=== PATIENT | male | born 1955 | race Caucasian/White ===

== ENCOUNTER 2016-08-29 21:07 | Inpatient (IN) | payer MEDICAID ==
[~2016-08-29] VITALS: Ht 177.8 cm; Wt 136.2 kg
[~2016-08-29 21:07] MED LIST: ALB5IS NEB; ALBUAER3 IN; Apixaban Base PO; DOX100T PO; FLUT110A INH; FURO20TA3 PO; IPR002IS NEB; PRED-188 PO; PRED-559 PO; Pantoprazole Sodium Sesquihydr PO
[2016-08-29] MEDS ORDERED: IPRATROPIUM BROM 0.5 MG/2.5ML INH SOL NEB ONE (21:45)
[2016-08-29] MEDS ORDERED: methylPREDNISolone SOD SUCC 125 MG/2 ML VL IV ONE (21:45)
[2016-08-29] MEDS ORDERED: ALBUTEROL SULF 2.5 MG/0.5ML(0.5%) NEB SOLN NEB ONE (21:45)
[2016-08-29] MEDS ORDERED: FUROSEMIDE 40 MG/4 ML VIAL IV ONE (21:45)
[2016-08-29 22:05] LABS: Basophils # (auto) 0 uL; Eosinophils # (auto) 0 uL; Eosinophils % (auto) 0.3 % (0.0-7.0); Hematocrit 45.8 % (41.0-53.0); Hemoglobin 14.3 g/dL (13.5-17.5); Lymphocytes # (auto) 0.6 uL; Lymphocytes % (auto) 5.6 % (10.0-50.0); Mean Corpuscular Hemoglobin 28.6 pg (28.0-32.0); Mean Corpuscular Hgb Conc. 31.2 g/dL (32.0-36.0); Mean Corpuscular Volume 91.7 fL (80.0-100.0); Mean Platelet Volume 8.1 fL (7.4-10.4); Monocytes # (auto) 0.8 uL; Monocytes % (auto) 7.3 % (0.0-12.0); Neutrophils # (auto) 9.8 uL; Neutrophils % (auto) 86.8 % (37.0-80.0); Platelet Count (auto) 379 10^3/uL (140-450); Red Cell Distribution Width 16.7 % (11.6-16.0); White Blood Cell 11.3 10^3/uL (4.4-10.8)
[2016-08-29 22:23] LABS: Albumin 3.1 g/dL (3.4-5.0); BUN/Creatinine Ratio 20.8; Calcium 8.3 mg/dL (8.5-10.1); Potassium 4.6 mmol/L (3.5-5.1)
[2016-08-29 22:31] LABS: B-Type Natriuretic Peptide 85.93 pg/mL (0-100)
[2016-08-29 22:36] LABS: Bilirubin, Total 0.2 mg/dL (0.2-1.0); Total Protein 7.5 g/dL (6.4-8.2)
[2016-08-29 22:42] LABS: INR 1.04 (0.9-1.15); Partial Thromboplastin Time 27.7 sec (22.64-33.71); Prothrombin Time 10.7 sec (9.37-12.3)
[2016-08-30] VITALS (8 sets, daily range): BP systolic 137–161; BP diastolic 72–102
[2016-08-30] MEDS ORDERED: ALBUTEROL SULF 2.5 MG/0.5ML(0.5%) NEB SOLN ONE (00:40)
[2016-08-30] MEDS ORDERED: ALBUTEROL SULF 2.5 MG/0.5ML(0.5%) NEB SOLN NEB ONE (00:45)
[2016-08-30] MEDS ORDERED: MORPHINE SULF INJ 2 MG/ML SYRINGE 1ML IV ONE (03:30)
[2016-08-30] MEDS ORDERED: ONDANSETRON HCL 4 MG/2 ML VIAL IV ONE (03:30)
[2016-08-30] MEDS ORDERED: TEMAZEPAM 15 MG CAP PO PRN (04:00)
[2016-08-30] MEDS ORDERED: NITROGLYCERIN 0.4 MG SL TAB SL PRN (04:00)
[2016-08-30] MEDS ORDERED: ONDANSETRON HCL 4 MG/2 ML VIAL IV PRN (04:00)
[2016-08-30] MEDS ORDERED: ACETAMINOPHEN 325 MG TAB PO PRN (04:00)
[2016-08-30] MEDS ORDERED: MORPHINE SULF INJ 2 MG/ML SYRINGE 1ML IV PRN (04:00)
[2016-08-30] MEDS ORDERED: HYDROcodone-ACET 5/325MG TAB PO PRN (04:00)
[2016-08-30] MEDS ORDERED: ALBUTEROL SULF 2.5 MG/0.5ML(0.5%) NEB SOLN NEB PRN (04:00)
[2016-08-30] MEDS: ENOXAPARIN SOD 100 MG/1 ML SYRINGE SC SCH ×2 (04:13→19:09)
[2016-08-30] MEDS: FUROSEMIDE 20 MG TAB PO SCH ×2 (05:53→19:09)
[2016-08-30] MEDS: cefTRIAXone 1GM/50ML D5W 50 ML IV SCH (12:01)
[2016-08-30] MEDS: predniSONE 5 MG TAB PO SCH (12:01)
[2016-08-30] MEDS: PANTOPRAZOLE 40 MG TAB PO SCH (12:02)
[2016-08-30] MEDS: FAMOTIDINE 20 MG TAB PO SCH ×2 (12:02→21:40)
[2016-08-31] VITALS (31 sets, daily range): BP systolic 81–153; BP diastolic 40–91
[2016-08-31] MEDS: ENOXAPARIN SOD 100 MG/1 ML SYRINGE SC SCH ×2 (05:03→16:22)
[2016-08-31] MEDS: FUROSEMIDE 20 MG TAB PO SCH (06:21)
[2016-08-31 06:25] LABS: Basophils # (auto) 0 uL; Basophils % (auto) 0.1 % (0.0-2.0); DEFINITIVE VIEW TRANSMISSION; Eosinophils # (auto) 0 uL; Hematocrit 45.9 % (41.0-53.0); Hemoglobin 14.1 g/dL (13.5-17.5); Lymphocytes # (auto) 0.8 uL; Lymphocytes % (auto) 5.3 % (10.0-50.0); Mean Corpuscular Hemoglobin 28.4 pg (28.0-32.0); Mean Corpuscular Hgb Conc. 30.8 g/dL (32.0-36.0); Mean Corpuscular Volume 92.3 fL (80.0-100.0); Mean Platelet Volume 8.1 fL (7.4-10.4); Monocytes # (auto) 1.1 uL; Monocytes % (auto) 7.6 % (0.0-12.0); Neutrophils # (auto) 12.7 uL; Platelet Count (auto) 379 10^3/uL (140-450); Red Cell Distribution Width 15.9 % (11.6-16.0); White Blood Cell 14.6 10^3/uL (4.4-10.8)
[2016-08-31] MEDS: cefTRIAXone 1GM/50ML D5W 50 ML IV SCH (09:46)
[2016-08-31] MEDS: PANTOPRAZOLE 40 MG TAB PO SCH (09:46)
[2016-08-31] MEDS: FAMOTIDINE 20 MG TAB PO SCH (09:46)
[2016-08-31] MEDS: predniSONE 5 MG TAB PO SCH (09:46)
[2016-08-31 09:55] LABS: BUN/Creatinine Ratio 23.8
[2016-08-31 09:56] LABS: Albumin 2.9 g/dL (3.4-5.0); Bilirubin, Total 0.2 mg/dL (0.2-1.0); Calcium 8.4 mg/dL (8.5-10.1); Total Protein 7.6 g/dL (6.4-8.2)
[2016-08-31 10:28] LABS: Urine Bilirubin Negative (Negative); Urine Color Yellow (Yellow); Urine Glucose Normal (Normal); Urine Ketone Negative (Negative); Urine Nitrite Negative (Negative); Urine RBC 57 /hpf (0 - 3); Urine Squamous Epithelial Cell FEW /hpf (<5); Urine Urobilinogen Normal (Negative)
[2016-08-31 10:30] LABS: Urine Blood 2+ /uL (Negative)
[2016-08-31] MEDS ORDERED: ROCURONIUM 10MG/ML 10ML VIAL IV ONE (16:36)
[2016-08-31] MEDS ORDERED: ETOMIDATE (2MG/ML) 20ML VIAL IV ONE (16:36)
[2016-08-31] MEDS ORDERED: PROPOFOL 100 ML IV ONE (16:37)
[2016-08-31] MEDS ORDERED: SUCCINYLCHOLINE CHLORIDE 20 MG/ML 10ML VIAL IV ONE (16:37)
[2016-08-31] MEDS ORDERED: MORPHINE SULF INJ 2 MG/ML SYRINGE 1ML IV PRN (16:45)
[2016-08-31] MEDS ORDERED: LORazepam 2MG/ML-1ML VIAL IV PRN (16:45)
[2016-08-31] MEDS ORDERED: NOREPINEPHRINE BITARTRATE 250 ML IV ONE (17:17)
[2016-08-31] MEDS: MIDAZOLAM DRIP 100 mg/100mL NS 100 ML IV SCH ×2 (17:30→23:00)
[2016-08-31] MEDS ORDERED: PROPOFOL 100 ML IV SCH (17:44)
[2016-08-31] MEDS ORDERED: MIDAZOLAM HCL 1MG/1ML-2 ML VIAL IV ONE (17:45)
[2016-08-31] MEDS: IPRATROPIUM BROM 0.5 MG/2.5ML INH SOL NEB SCH ×2 (18:54→22:28)
[2016-08-31] MEDS: ALBUTEROL SULF 2.5 MG/0.5ML(0.5%) NEB SOLN NEB SCH ×2 (18:54→22:29)
[2016-08-31] MEDS: PROPOFOL 100 ML IV SCH (19:30)
[2016-08-31] MEDS: methylPREDNISolone SOD SUCC 40 MG/ML VL IV SCH (19:34)
[2016-08-31] MEDS: FAMOTIDINE (10MG/ML) 2ML VL IV SCH (22:29)
[2016-08-31] MEDS: NOREPINEPHRINE BITARTRATE 250 ML IV SCH (22:30)
[2016-09-01] VITALS (103 sets, daily range): BP systolic 83–138; BP diastolic 43–87
[2016-09-01] MEDS: methylPREDNISolone SOD SUCC 40 MG/ML VL IV SCH ×4 (00:28→17:25)
[2016-09-01] MEDS: IPRATROPIUM BROM 0.5 MG/2.5ML INH SOL NEB SCH ×6 (02:00→22:32)
[2016-09-01] MEDS: ALBUTEROL SULF 2.5 MG/0.5ML(0.5%) NEB SOLN NEB SCH ×6 (02:00→22:32)
[2016-09-01] MEDS: ENOXAPARIN SOD 100 MG/1 ML SYRINGE SC SCH ×2 (03:53→16:12)
[2016-09-01] MEDS: NOREPINEPHRINE BITARTRATE 250 ML IV SCH (07:00)
[2016-09-01] MEDS: cefTRIAXone 1GM/50ML D5W 50 ML IV SCH (09:33)
[2016-09-01] MEDS: FAMOTIDINE (10MG/ML) 2ML VL IV SCH ×2 (09:56→22:00)
[2016-09-01] MEDS: PANTOPRAZOLE SODIUM 40 MG/10 ML VIAL IV SCH (09:57)
[2016-09-01] MEDS: fentaNYL Drip 2500mCg/250mlNS 250 ML IV SCH (10:26)
[2016-09-01] MEDS: MIDAZOLAM DRIP 100 mg/100mL NS 100 ML IV SCH ×2 (15:11→21:54)
[2016-09-01] MEDS ORDERED: Nutren Pulmonary 1 Liter GT SCH (15:15)
[2016-09-01 17:01] LABS: Basophils # (auto) 0 uL; Basophils % (auto) 0.3 % (0.0-2.0); Eosinophils # (auto) 0 uL; Hematocrit 40.4 % (41.0-53.0); Hemoglobin 12.6 g/dL (13.5-17.5); Lymphocytes # (auto) 0.5 uL; Lymphocytes % (auto) 5.3 % (10.0-50.0); Mean Corpuscular Hemoglobin 28.3 pg (28.0-32.0); Mean Corpuscular Hgb Conc. 31.3 g/dL (32.0-36.0); Mean Corpuscular Volume 90.3 fL (80.0-100.0); Mean Platelet Volume 8.1 fL (7.4-10.4); Monocytes # (auto) 0.3 uL; Monocytes % (auto) 2.7 % (0.0-12.0); Neutrophils # (auto) 9.3 uL; Neutrophils % (auto) 91.7 % (37.0-80.0); Platelet Count (auto) 374 10^3/uL (140-450); Red Cell Distribution Width 15.7 % (11.6-16.0); White Blood Cell 10.2 10^3/uL (4.4-10.8)
[2016-09-01 17:17] LABS: Albumin 2.6 g/dL (3.4-5.0); Bilirubin, Total 0.2 mg/dL (0.2-1.0); Calcium 8.5 mg/dL (8.5-10.1); Potassium 4.4 mmol/L (3.5-5.1); Total Protein 6.6 g/dL (6.4-8.2)
[2016-09-01] MEDS: FREE WATER GT SCH ×2 (17:37→22:00)
[2016-09-01] MEDS: PROPOFOL 100 ML IV SCH (18:15)
[2016-09-01] MEDS: BUDESONIDE (INHALATION) 0.5 MG/2 ML NEB NEB SCH (18:33)
[2016-09-02] VITALS (59 sets, daily range): BP systolic 85–122; BP diastolic 43–73
[2016-09-02] MEDS: FREE WATER GT SCH ×4 (02:00→18:00)
[2016-09-02] MEDS: IPRATROPIUM BROM 0.5 MG/2.5ML INH SOL NEB SCH ×6 (02:45→22:23)
[2016-09-02] MEDS: ALBUTEROL SULF 2.5 MG/0.5ML(0.5%) NEB SOLN NEB SCH ×6 (02:46→22:23)
[2016-09-02] MEDS: ENOXAPARIN SOD 100 MG/1 ML SYRINGE SC SCH ×2 (04:00→16:06)
[2016-09-02] MEDS: BUDESONIDE (INHALATION) 0.5 MG/2 ML NEB NEB SCH ×2 (07:00→22:23)
[2016-09-02] MEDS: methylPREDNISolone SOD SUCC 40 MG/ML VL IV SCH ×4 (07:30→18:03)
[2016-09-02] MEDS: cefTRIAXone 1GM/50ML D5W 50 ML IV SCH (08:36)
[2016-09-02] MEDS: FAMOTIDINE (10MG/ML) 2ML VL IV SCH ×2 (09:36→22:00)
[2016-09-02] MEDS: PANTOPRAZOLE SODIUM 40 MG/10 ML VIAL IV SCH (09:36)
[2016-09-02] MEDS: MIDAZOLAM DRIP 100 mg/100mL NS 100 ML IV SCH (11:32)
[2016-09-02] MEDS: SODIUM CHLORIDE 0.9% 1,000 ML IV SCH (14:44)
[2016-09-02 15:19] LABS: BUN/Creatinine Ratio 25.6; Calcium 8.3 mg/dL (8.5-10.1); Potassium 4.4 mmol/L (3.5-5.1)
[2016-09-02] MEDS: fentaNYL Drip 2500mCg/250mlNS 250 ML IV SCH (16:28)
[2016-09-02] MEDS: PROPOFOL 100 ML IV SCH (18:03)
[2016-09-02] MEDS: NOREPINEPHRINE BITARTRATE 250 ML IV SCH (22:03)
[2016-09-03] VITALS (30 sets, daily range): BP systolic 83–121; BP diastolic 43–82
[2016-09-03] MEDS: ALBUTEROL SULF 2.5 MG/0.5ML(0.5%) NEB SOLN NEB SCH ×6 (02:42→22:31)
[2016-09-03] MEDS: IPRATROPIUM BROM 0.5 MG/2.5ML INH SOL NEB SCH ×6 (02:42→22:30)
[2016-09-03] MEDS: ENOXAPARIN SOD 100 MG/1 ML SYRINGE SC SCH ×2 (04:00→17:20)
[2016-09-03] MEDS: methylPREDNISolone SOD SUCC 40 MG/ML VL IV SCH ×4 (06:00→18:00)
[2016-09-03] MEDS: FREE WATER GT SCH ×3 (06:00→12:00)
[2016-09-03] MEDS: cefTRIAXone 1GM/50ML D5W 50 ML IV SCH (09:23)
[2016-09-03] MEDS: PANTOPRAZOLE SODIUM 40 MG/10 ML VIAL IV SCH (09:23)
[2016-09-03] MEDS: FAMOTIDINE (10MG/ML) 2ML VL IV SCH (09:23)
[2016-09-03] MEDS: BUDESONIDE (INHALATION) 0.5 MG/2 ML NEB NEB SCH ×2 (09:49→18:07)
[2016-09-03] MEDS: fentaNYL Drip 2500mCg/250mlNS 250 ML IV SCH (10:02)
[2016-09-03] MEDS: SODIUM CHLORIDE 0.9% 1,000 ML IV SCH (11:33)
[2016-09-03] MEDS: PROPOFOL 100 ML IV SCH (22:03)
[2016-09-03] MEDS: NOREPINEPHRINE BITARTRATE 250 ML IV SCH (22:03)
[2016-09-04] VITALS (76 sets, daily range): BP systolic 91–162; BP diastolic 49–106
[2016-09-04] MEDS: MIDAZOLAM DRIP 100 mg/100mL NS 100 ML IV SCH ×3 (00:07→20:34)
[2016-09-04] MEDS: IPRATROPIUM BROM 0.5 MG/2.5ML INH SOL NEB SCH ×6 (02:43→22:30)
[2016-09-04] MEDS: ALBUTEROL SULF 2.5 MG/0.5ML(0.5%) NEB SOLN NEB SCH ×6 (02:43→22:30)
[2016-09-04 04:24] LABS: Basophils # (auto) 0.3 uL; Basophils % (auto) 2.5 % (0.0-2.0); Eosinophils # (auto) 0 uL; Eosinophils % (auto) 0.1 % (0.0-7.0); Hematocrit 38.6 % (41.0-53.0); Hemoglobin 11.9 g/dL (13.5-17.5); Lymphocytes # (auto) 0.3 uL; Lymphocytes % (auto) 2.9 % (10.0-50.0); Mean Corpuscular Hemoglobin 28.2 pg (28.0-32.0); Mean Corpuscular Hgb Conc. 30.9 g/dL (32.0-36.0); Mean Corpuscular Volume 91.2 fL (80.0-100.0); Mean Platelet Volume 8.6 fL (7.4-10.4); Monocytes # (auto) 0.8 uL; Monocytes % (auto) 7.7 % (0.0-12.0); Neutrophils # (auto) 9.4 uL; Neutrophils % (auto) 86.8 % (37.0-80.0); Platelet Count (auto) 313 10^3/uL (140-450); Red Cell Distribution Width 16.1 % (11.6-16.0); White Blood Cell 10.8 10^3/uL (4.4-10.8)
[2016-09-04 04:36] LABS: BUN/Creatinine Ratio 27.3; Calcium 7.8 mg/dL (8.5-10.1); Potassium 4.3 mmol/L (3.5-5.1)
[2016-09-04] MEDS: methylPREDNISolone SOD SUCC 40 MG/ML VL IV SCH ×2 (06:00)
[2016-09-04] MEDS: BUDESONIDE (INHALATION) 0.5 MG/2 ML NEB NEB SCH ×2 (06:30→18:08)
[2016-09-04] MEDS: FAMOTIDINE (10MG/ML) 2ML VL IV SCH (09:38)
[2016-09-04] MEDS: cefTRIAXone 1GM/50ML D5W 50 ML IV SCH (09:38)
[2016-09-04] MEDS: PANTOPRAZOLE SODIUM 40 MG/10 ML VIAL IV SCH (09:38)
[2016-09-04] MEDS: fentaNYL Drip 2500mCg/250mlNS 250 ML IV SCH (10:02)
[2016-09-04] MEDS: FREE WATER GT SCH ×3 (14:00→22:00)
[2016-09-04] MEDS ORDERED: LIDOCAINE 1% HCL (LOCAL ANESTH.) INJ 20ML MDV ID ONE (14:15)
[2016-09-04] MEDS: SOD CHL 0.45% 1,000 ML IV SCH (15:15)
[2016-09-04] MEDS ORDERED: TPN PER PHARMACY 0 ML IV SCH (17:00)
[2016-09-04] MEDS: PROPOFOL 100 ML IV SCH (18:15)
[2016-09-04] MEDS: MULTIPLE VITAMIN IV SCH (20:00)
[2016-09-04] MEDS: INSULIN R IV SCH (20:00)
[2016-09-04] MEDS: TRACE MINERALS IV SCH (20:00)
[2016-09-04] MEDS: [UNRECOGNIZED DRUG - OTHER] IV SCH (20:00)
[2016-09-04] MEDS: SODIUM CHLOR 0.9% PF (SALINE LOCK) 10ML VIAL IV SCH (22:00)
[2016-09-04] MEDS: NOREPINEPHRINE BITARTRATE 250 ML IV SCH (22:03)
[2016-09-05] VITALS (93 sets, daily range): BP systolic 89–144; BP diastolic 48–95
[2016-09-05] MEDS ORDERED: DEXTROSE (50%) 50ML SYRG IV SCH
[2016-09-05] MEDS: InsuLIN REG 1unit/0.01ml Soln (100units/ml) SC SCH ×4 (00:22→17:58)
[2016-09-05] MEDS: ACCU-CHEK COMFORT CURVE STRIP VI SCH ×4 (00:22→17:56)
[2016-09-05] MEDS: FREE WATER GT SCH ×5 (02:00→17:56)
[2016-09-05] MEDS: ALBUTEROL SULF 2.5 MG/0.5ML(0.5%) NEB SOLN NEB SCH ×6 (02:25→21:56)
[2016-09-05] MEDS: IPRATROPIUM BROM 0.5 MG/2.5ML INH SOL NEB SCH ×6 (02:25→21:56)
[2016-09-05] MEDS: SOD CHL 0.45% 1,000 ML IV SCH ×3 (04:35→22:19)
[2016-09-05] MEDS ORDERED: ENOXAPARIN SOD 100 MG/1 ML SYRINGE SC SCH (05:00)
[2016-09-05 06:35] LABS: Basophils # (auto) 0 uL; DEFINITIVE VIEW TRANSMISSION; Eosinophils # (auto) 0 uL; Eosinophils % (auto) 0.1 % (0.0-7.0); Hematocrit 36.4 % (41.0-53.0); Hemoglobin 9.9 g/dL (13.5-17.5); Lymphocytes # (auto) 0.2 uL; Mean Corpuscular Hemoglobin 28.4 pg (28.0-32.0); Mean Corpuscular Volume 105.1 fL (80.0-100.0); Mean Platelet Volume 8.9 fL (7.4-10.4); Monocytes # (auto) 0.2 uL; Monocytes % (auto) 1.9 % (0.0-12.0); Neutrophils # (auto) 11.1 uL; Platelet Count (auto) 255 10^3/uL (140-450); Red Cell Distribution Width 18.4 % (11.6-16.0); SUSPECT VIEW TRANSMISSION; White Blood Cell 11.5 10^3/uL (4.4-10.8)
[2016-09-05] MEDS: methylPREDNISolone SOD SUCC 40 MG/ML VL IV SCH ×5 (08:00→21:44)
[2016-09-05 08:55] LABS: Anisocytosis Slight; Platelet Estimate Adequate
[2016-09-05 09:04] LABS: Albumin 2.4 g/dL (3.4-5.0); BUN/Creatinine Ratio 31.3; Bilirubin, Total 0.2 mg/dL (0.2-1.0); Calcium 7.7 mg/dL (8.5-10.1); Phosphorus 4.3 mg/dL (2.6-4.90); Potassium 4.6 mmol/L (3.5-5.1); Total Protein 6.1 g/dL (6.4-8.2); Uric Acid 4.5 mg/dL (3.5-7.2)
[2016-09-05] MEDS: SODIUM CHLOR 0.9% PF (SALINE LOCK) 10ML VIAL IV SCH ×2 (09:50→21:33)
[2016-09-05] MEDS: PANTOPRAZOLE SODIUM 40 MG/10 ML VIAL IV SCH (09:50)
[2016-09-05] MEDS: cefTRIAXone 1GM/50ML D5W 50 ML IV SCH (09:50)
[2016-09-05] MEDS: fentaNYL Drip 2500mCg/250mlNS 250 ML IV SCH (09:52)
[2016-09-05] MEDS: BUDESONIDE (INHALATION) 0.5 MG/2 ML NEB NEB SCH ×2 (10:00→18:14)
[2016-09-05] MEDS: MULTIPLE VITAMIN IV SCH (15:00)
[2016-09-05] MEDS: INSULIN R IV SCH (15:00)
[2016-09-05] MEDS: [UNRECOGNIZED DRUG - OTHER] IV SCH (15:00)
[2016-09-05] MEDS: TRACE MINERALS IV SCH (15:00)
[2016-09-05] MEDS: DOXYCYCLINE HYC 100MG/250ML 250 ML IV SCH (16:08)
[2016-09-05] MEDS: PROPOFOL 100 ML IV SCH (17:58)
[2016-09-05] MEDS ORDERED: CLINIMIX PER PHARMACY IV NR ×5 (20:00)
[2016-09-05] MEDS: MIDAZOLAM DRIP 100 mg/100mL NS 100 ML IV SCH (22:57)
[2016-09-06] VITALS (103 sets, daily range): BP systolic 85–122; BP diastolic 43–102
[2016-09-06] MEDS: ACCU-CHEK COMFORT CURVE STRIP VI SCH ×4 (00:10→18:26)
[2016-09-06] MEDS: IPRATROPIUM BROM 0.5 MG/2.5ML INH SOL NEB SCH ×5 (02:45→18:51)
[2016-09-06] MEDS: ALBUTEROL SULF 2.5 MG/0.5ML(0.5%) NEB SOLN NEB SCH ×5 (02:45→18:51)
[2016-09-06] MEDS: DOXYCYCLINE HYC 100MG/250ML 250 ML IV SCH ×2 (03:16→15:41)
[2016-09-06 04:10] LABS: Basophils # (auto) 0 uL; Eosinophils # (auto) 0 uL; Eosinophils % (auto) 0.1 % (0.0-7.0); Hematocrit 38.4 % (41.0-53.0); Hemoglobin 11.8 g/dL (13.5-17.5); Lymphocytes # (auto) 0.3 uL; Lymphocytes % (auto) 2.2 % (10.0-50.0); Mean Corpuscular Hemoglobin 28.3 pg (28.0-32.0); Mean Corpuscular Hgb Conc. 30.8 g/dL (32.0-36.0); Mean Corpuscular Volume 91.7 fL (80.0-100.0); Mean Platelet Volume 8.5 fL (7.4-10.4); Monocytes # (auto) 0.3 uL; Monocytes % (auto) 1.9 % (0.0-12.0); Neutrophils # (auto) 14.1 uL; Neutrophils % (auto) 95.8 % (37.0-80.0); Platelet Count (auto) 322 10^3/uL (140-450); Red Cell Distribution Width 16.8 % (11.6-16.0); White Blood Cell 14.7 10^3/uL (4.4-10.8)
[2016-09-06 04:16] LABS: Albumin 2.2 g/dL (3.4-5.0); BUN/Creatinine Ratio 37.2; Bilirubin, Total 0.2 mg/dL (0.2-1.0); Calcium 7.8 mg/dL (8.5-10.1); Magnesium 2.7 mg/dL (1.6-2.6); Phosphorus 4.6 mg/dL (2.6-4.90); Potassium 4.7 mmol/L (3.5-5.1); Total Protein 5.4 g/dL (6.4-8.2)
[2016-09-06] MEDS: MIDAZOLAM DRIP 100 mg/100mL NS 100 ML IV SCH (05:18)
[2016-09-06] MEDS: InsuLIN REG 1unit/0.01ml Soln (100units/ml) SC SCH ×4 (06:00→18:00)
[2016-09-06] MEDS: FREE WATER GT SCH ×4 (06:00→18:26)
[2016-09-06] MEDS: BUDESONIDE (INHALATION) 0.5 MG/2 ML NEB NEB SCH (06:17)
[2016-09-06] MEDS: methylPREDNISolone SOD SUCC 40 MG/ML VL IV SCH ×3 (06:58→21:55)
[2016-09-06] MEDS: fentaNYL Drip 2500mCg/250mlNS 250 ML IV SCH (09:13)
[2016-09-06] MEDS: PANTOPRAZOLE SODIUM 40 MG/10 ML VIAL IV SCH (09:48)
[2016-09-06] MEDS: ENOXAPARIN SOD 100 MG/1 ML SYRINGE SC SCH ×2 (09:48→21:56)
[2016-09-06] MEDS: SODIUM CHLOR 0.9% PF (SALINE LOCK) 10ML VIAL IV SCH ×2 (09:48→21:56)
[2016-09-06] MEDS: PROPOFOL 100 ML IV SCH (18:15)
[2016-09-06] MEDS: SOD CHL 0.45% 1,000 ML IV SCH ×2 (18:19→19:35)
[2016-09-06] MEDS: MULTIPLE VITAMIN IV SCH (18:26)
[2016-09-06] MEDS: INSULIN R IV SCH (18:26)
[2016-09-06] MEDS: TRACE MINERALS IV SCH (18:26)
[2016-09-06] MEDS: [UNRECOGNIZED DRUG - OTHER] IV SCH (18:26)
[2016-09-06] MEDS ORDERED: TPN PER PHARMACY 0 ML IV SCH (20:00)
[2016-09-06] MEDS ORDERED: CLINIMIX PER PHARMACY IV NR ×5 (20:00)
[2016-09-07] VITALS (104 sets, daily range): BP systolic 91–127; BP diastolic 49–79
[2016-09-07] MEDS: IPRATROPIUM BROM 0.5 MG/2.5ML INH SOL NEB SCH ×7 (00:18→23:03)
[2016-09-07] MEDS: BUDESONIDE (INHALATION) 0.5 MG/2 ML NEB NEB SCH ×3 (00:18→23:03)
[2016-09-07] MEDS: ALBUTEROL SULF 2.5 MG/0.5ML(0.5%) NEB SOLN NEB SCH ×7 (00:18→23:03)
[2016-09-07] MEDS: DOXYCYCLINE HYC 100MG/250ML 250 ML IV SCH ×2 (02:47→15:49)
[2016-09-07 04:15] LABS: Albumin 2.1 g/dL (3.4-5.0); BUN/Creatinine Ratio 42.1; Bilirubin, Total 0.2 mg/dL (0.2-1.0); Calcium 7.8 mg/dL (8.5-10.1); Magnesium 2.5 mg/dL (1.6-2.6); Phosphorus 3.5 mg/dL (2.6-4.90); Potassium 4.5 mmol/L (3.5-5.1); Total Protein 5.3 g/dL (6.4-8.2)
[2016-09-07] MEDS: SOD CHL 0.45% 1,000 ML IV SCH (04:19)
[2016-09-07] MEDS: FREE WATER GT SCH ×4 (06:00→17:39)
[2016-09-07] MEDS: InsuLIN REG 1unit/0.01ml Soln (100units/ml) SC SCH ×4 (06:00→17:40)
[2016-09-07] MEDS: ACCU-CHEK COMFORT CURVE STRIP VI SCH ×4 (06:08→17:39)
[2016-09-07] MEDS: methylPREDNISolone SOD SUCC 40 MG/ML VL IV SCH ×3 (06:11→22:02)
[2016-09-07] MEDS: fentaNYL Drip 2500mCg/250mlNS 250 ML IV SCH ×2 (06:43→22:00)
[2016-09-07] MEDS: MIDAZOLAM DRIP 100 mg/100mL NS 100 ML IV SCH (06:43)
[2016-09-07] MEDS: PANTOPRAZOLE SODIUM 40 MG/10 ML VIAL IV SCH (10:31)
[2016-09-07] MEDS: ENOXAPARIN SOD 120 MG/0.8 ML SYRINGE SC SCH ×2 (10:32→22:02)
[2016-09-07] MEDS: SODIUM CHLOR 0.9% PF (SALINE LOCK) 10ML VIAL IV SCH ×2 (10:32→22:03)
[2016-09-07] MEDS: MULTIPLE VITAMIN IV SCH (17:30)
[2016-09-07] MEDS: TRACE MINERALS IV SCH (17:30)
[2016-09-07] MEDS: INSULIN R IV SCH (17:30)
[2016-09-07] MEDS: [UNRECOGNIZED DRUG - OTHER] IV SCH (17:30)
[2016-09-07] MEDS: LEVOFLOXACIN 750MG 150 ML IV SCH (17:39)
[2016-09-07] MEDS: PROPOFOL 100 ML IV SCH (18:15)
[2016-09-07] MEDS: LINEZOLID 600MG/300ML 300 ML IV SCH (19:59)
[2016-09-07] MEDS ORDERED: CLINIMIX PER PHARMACY IV NR ×6 (20:00)
[2016-09-07] MEDS: MEROPENEM 1GM IVPB 100 ML IV SCH (22:02)
[2016-09-08] VITALS (108 sets, daily range): BP systolic 81–133; BP diastolic 42–79
[2016-09-08] MEDS: ACCU-CHEK COMFORT CURVE STRIP VI SCH ×5 (00:17→23:53)
[2016-09-08] MEDS: SOD CHL 0.45% 1,000 ML IV SCH ×3 (00:19→20:08)
[2016-09-08] MEDS: InsuLIN REG 1unit/0.01ml Soln (100units/ml) SC SCH ×5 (01:03→23:53)
[2016-09-08] MEDS: MIDAZOLAM DRIP 100 mg/100mL NS 100 ML IV SCH (02:11)
[2016-09-08] MEDS: IPRATROPIUM BROM 0.5 MG/2.5ML INH SOL NEB SCH ×6 (02:41→22:03)
[2016-09-08] MEDS: ALBUTEROL SULF 2.5 MG/0.5ML(0.5%) NEB SOLN NEB SCH ×6 (02:41→22:03)
[2016-09-08] MEDS: DOXYCYCLINE HYC 100MG/250ML 250 ML IV SCH (03:00)
[2016-09-08 04:12] LABS: Hematocrit 39.6 % (41.0-53.0); Hemoglobin 12.4 g/dL (13.5-17.5); Mean Corpuscular Hemoglobin 28.2 pg (28.0-32.0); Mean Corpuscular Hgb Conc. 31.2 g/dL (32.0-36.0); Mean Corpuscular Volume 90.3 fL (80.0-100.0); Mean Platelet Volume 9.4 fL (7.4-10.4); Platelet Count (auto) 287 10^3/uL (140-450); Red Cell Distribution Width 16.5 % (11.6-16.0); SUSPECT VIEW TRANSMISSION; White Blood Cell 17.1 10^3/uL (4.4-10.8)
[2016-09-08 04:17] LABS: Promyelocytes % 0; Reactive Lymphocytes 0
[2016-09-08 04:40] LABS: Calcium 7.8 mg/dL (8.5-10.1); Potassium 4.3 mmol/L (3.5-5.1)
[2016-09-08 05:00] LABS: Albumin 1.9 g/dL (3.4-5.0); BUN/Creatinine Ratio 45.4; Bilirubin, Total 0.3 mg/dL (0.2-1.0); Magnesium 2.2 mg/dL (1.6-2.6)
[2016-09-08 05:37] LABS: Metamyelocytes % 1; Myelocytes % 1
[2016-09-08 05:38] LABS: Hypersegmented Neutrophils Present; Platelet Estimate Adequate; RBC Morphology Normal
[2016-09-08] MEDS: FREE WATER GT SCH ×5 (06:16→23:53)
[2016-09-08] MEDS: MEROPENEM 1GM IVPB 100 ML IV SCH ×3 (06:17→21:46)
[2016-09-08] MEDS: methylPREDNISolone SOD SUCC 40 MG/ML VL IV SCH ×3 (06:18→21:45)
[2016-09-08] MEDS: BUDESONIDE (INHALATION) 0.5 MG/2 ML NEB NEB SCH ×2 (06:35→21:51)
[2016-09-08] MEDS: LINEZOLID 600MG/300ML 300 ML IV SCH ×2 (08:40→19:44)
[2016-09-08] MEDS: ENOXAPARIN SOD 120 MG/0.8 ML SYRINGE SC SCH ×2 (10:30→21:45)
[2016-09-08] MEDS: SODIUM CHLOR 0.9% PF (SALINE LOCK) 10ML VIAL IV SCH ×2 (10:30→21:46)
[2016-09-08] MEDS: PANTOPRAZOLE SODIUM 40 MG/10 ML VIAL IV SCH (10:30)
[2016-09-08] MEDS: fentaNYL Drip 2500mCg/250mlNS 250 ML IV SCH (13:13)
[2016-09-08 16:52] LABS: Urine Bilirubin Negative (Negative); Urine Blood 3+ /uL (Negative); Urine Color PINK (Yellow); Urine Glucose Normal (Normal); Urine Ketone TRACE (Negative); Urine Mucus FEW (None Seen); Urine Nitrite Negative (Negative); Urine RBC 1961 /hpf (0 - 3); Urine Urobilinogen Normal (Negative)
[2016-09-08] MEDS ORDERED: TPN PER PHARMACY IV NR ×10 (20:00)
[2016-09-08] MEDS: MULTIPLE VITAMIN IV SCH (20:09)
[2016-09-08] MEDS: [UNRECOGNIZED DRUG - OTHER] IV SCH (20:09)
[2016-09-08] MEDS: LEVOFLOXACIN 750MG 150 ML IV SCH (20:09)
[2016-09-08] MEDS: INSULIN R IV SCH (20:09)
[2016-09-08] MEDS: PROPOFOL 100 ML IV SCH (20:09)
[2016-09-08] MEDS: TRACE MINERALS IV SCH (20:09)
[2016-09-09] VITALS (91 sets, daily range): BP systolic 95–138; BP diastolic 57–89
[2016-09-09] MEDS: SOD CHL 0.45% 1,000 ML IV SCH (01:14)
[2016-09-09] MEDS: IPRATROPIUM BROM 0.5 MG/2.5ML INH SOL NEB SCH ×5 (02:02→22:26)
[2016-09-09] MEDS: ALBUTEROL SULF 2.5 MG/0.5ML(0.5%) NEB SOLN NEB SCH ×5 (02:02→22:26)
[2016-09-09] MEDS: fentaNYL Drip 2500mCg/250mlNS 250 ML IV SCH (03:35)
[2016-09-09 03:49] LABS: Hematocrit 42.8 % (41.0-53.0); Hemoglobin 13.6 g/dL (13.5-17.5); Mean Corpuscular Hemoglobin 28.5 pg (28.0-32.0); Mean Corpuscular Hgb Conc. 31.7 g/dL (32.0-36.0); Mean Corpuscular Volume 89.9 fL (80.0-100.0); Mean Platelet Volume 9.3 fL (7.4-10.4); Platelet Count (auto) 287 10^3/uL (140-450); Red Cell Distribution Width 16.2 % (11.6-16.0); SUSPECT VIEW TRANSMISSION; White Blood Cell 21.3 10^3/uL (4.4-10.8)
[2016-09-09 04:04] LABS: Myelocytes % 0; Promyelocytes % 0; Reactive Lymphocytes 0
[2016-09-09 04:06] LABS: Calcium 7.7 mg/dL (8.5-10.1); Magnesium 2.1 mg/dL (1.6-2.6); Potassium 4.3 mmol/L (3.5-5.1)
[2016-09-09 04:08] LABS: BUN/Creatinine Ratio 38.6
[2016-09-09 04:10] LABS: Bilirubin, Total 0.3 mg/dL (0.2-1.0); Total Protein 5.4 g/dL (6.4-8.2)
[2016-09-09 04:26] LABS: Phosphorus 3.8 mg/dL (2.6-4.90)
[2016-09-09 04:39] LABS: Hypersegmented Neutrophils Present; Metamyelocytes % 1; Platelet Estimate Adequate
[2016-09-09 04:40] LABS: Anisocytosis Slight; Ovalocytes FEW
[2016-09-09] MEDS: ACCU-CHEK COMFORT CURVE STRIP VI SCH ×3 (05:40→18:19)
[2016-09-09] MEDS: methylPREDNISolone SOD SUCC 40 MG/ML VL IV SCH ×3 (05:40→22:13)
[2016-09-09] MEDS: FREE WATER GT SCH ×3 (05:40→17:56)
[2016-09-09] MEDS: MEROPENEM 1GM IVPB 100 ML IV SCH ×3 (05:40→22:13)
[2016-09-09] MEDS: InsuLIN REG 1unit/0.01ml Soln (100units/ml) SC SCH ×3 (05:41→18:00)
[2016-09-09] MEDS: LINEZOLID 600MG/300ML 300 ML IV SCH ×2 (07:36→19:39)
[2016-09-09] MEDS: BUDESONIDE (INHALATION) 0.5 MG/2 ML NEB NEB SCH ×2 (07:47→22:26)
[2016-09-09] MEDS: PANTOPRAZOLE SODIUM 40 MG/10 ML VIAL IV SCH (09:37)
[2016-09-09] MEDS: ENOXAPARIN SOD 120 MG/0.8 ML SYRINGE SC SCH ×2 (09:37→22:13)
[2016-09-09] MEDS: SODIUM CHLOR 0.9% PF (SALINE LOCK) 10ML VIAL IV SCH ×2 (09:37→22:13)
[2016-09-09] MEDS: TRACE MINERALS IV SCH (17:00)
[2016-09-09] MEDS: INSULIN R IV SCH (17:00)
[2016-09-09] MEDS: [UNRECOGNIZED DRUG - OTHER] IV SCH (17:00)
[2016-09-09] MEDS: MULTIPLE VITAMIN IV SCH (17:00)
[2016-09-09] MEDS: LEVOFLOXACIN 750MG 150 ML IV SCH (17:56)
[2016-09-09] MEDS: PROPOFOL 100 ML IV SCH (18:15)
[2016-09-09] MEDS: MIDAZOLAM DRIP 100 mg/100mL NS 100 ML IV SCH (19:39)
[2016-09-09] MEDS ORDERED: TPN PER PHARMACY IV NR ×10 (20:00)
[2016-09-10] VITALS (90 sets, daily range): BP systolic 65–166; BP diastolic 36–123
[2016-09-10] MEDS: InsuLIN REG 1unit/0.01ml Soln (100units/ml) SC SCH ×4 (00:35→17:37)
[2016-09-10] MEDS: ACCU-CHEK COMFORT CURVE STRIP VI SCH ×5 (00:35→23:54)
[2016-09-10] MEDS: FREE WATER GT SCH ×4 (00:35→17:30)
[2016-09-10] MEDS: IPRATROPIUM BROM 0.5 MG/2.5ML INH SOL NEB SCH ×6 (02:08→22:15)
[2016-09-10] MEDS: ALBUTEROL SULF 2.5 MG/0.5ML(0.5%) NEB SOLN NEB SCH ×6 (02:08→22:15)
[2016-09-10] MEDS: fentaNYL Drip 2500mCg/250mlNS 250 ML IV SCH ×2 (04:31→17:29)
[2016-09-10] MEDS: methylPREDNISolone SOD SUCC 40 MG/ML VL IV SCH ×3 (06:05→22:35)
[2016-09-10] MEDS: MEROPENEM 1GM IVPB 100 ML IV SCH ×3 (06:05→22:00)
[2016-09-10 06:27] LABS: Hematocrit 43.2 % (41.0-53.0); Hemoglobin 13.6 g/dL (13.5-17.5); Mean Corpuscular Hemoglobin 28.3 pg (28.0-32.0); Mean Corpuscular Hgb Conc. 31.5 g/dL (32.0-36.0); Mean Corpuscular Volume 89.8 fL (80.0-100.0); Mean Platelet Volume 9.6 fL (7.4-10.4); Platelet Count (auto) 283 10^3/uL (140-450); Red Cell Distribution Width 16.5 % (11.6-16.0); SUSPECT VIEW TRANSMISSION; White Blood Cell 19.6 10^3/uL (4.4-10.8)
[2016-09-10 06:29] LABS: Myelocytes % 0; Promyelocytes % 0; Reactive Lymphocytes 0
[2016-09-10 06:43] LABS: BUN/Creatinine Ratio 41.1; Calcium 7.5 mg/dL (8.5-10.1); Potassium 4.7 mmol/L (3.5-5.1)
[2016-09-10] MEDS: BUDESONIDE (INHALATION) 0.5 MG/2 ML NEB NEB SCH ×2 (06:43→22:15)
[2016-09-10 07:36] LABS: Large Platelets FEW; Platelet Estimate Adequate
[2016-09-10 07:37] LABS: Metamyelocytes % 1
[2016-09-10 07:40] LABS: Hypersegmented Neutrophils Present
[2016-09-10] MEDS: LINEZOLID 600MG/300ML 300 ML IV SCH ×2 (07:57→20:42)
[2016-09-10] MEDS: ENOXAPARIN SOD 120 MG/0.8 ML SYRINGE SC SCH ×2 (09:30→22:35)
[2016-09-10] MEDS: PANTOPRAZOLE SODIUM 40 MG/10 ML VIAL IV SCH (09:30)
[2016-09-10] MEDS: SODIUM CHLOR 0.9% PF (SALINE LOCK) 10ML VIAL IV SCH ×2 (09:31→22:35)
[2016-09-10] MEDS ORDERED: FUROSEMIDE 40 MG/4 ML VIAL IV ONE (09:45)
[2016-09-10 10:44] LABS: Magnesium 2.2 mg/dL (1.6-2.6); Phosphorus 3.2 mg/dL (2.6-4.90)
[2016-09-10] MEDS: ENALAPRIL MALEATE 2.5 MG TAB NG SCH (10:46)
[2016-09-10] MEDS: MIDAZOLAM DRIP 100 mg/100mL NS 100 ML IV SCH (11:13)
[2016-09-10] MEDS ORDERED: SOD CHL 0.45% 1,000 ML IV SCH (11:54)
[2016-09-10] MEDS: MULTIPLE VITAMIN IV SCH (17:00)
[2016-09-10] MEDS: INSULIN R IV SCH (17:00)
[2016-09-10] MEDS: [UNRECOGNIZED DRUG - OTHER] IV SCH (17:00)
[2016-09-10] MEDS: TRACE MINERALS IV SCH (17:00)
[2016-09-10] MEDS: LEVOFLOXACIN 750MG 150 ML IV SCH (17:30)
[2016-09-10] MEDS ORDERED: NOREPINEPHRINE BITARTRATE 250 ML IV ONE (19:12)
[2016-09-10] MEDS: NOREPINEPHRINE BITARTRATE 250 ML IV SCH (19:37)
[2016-09-10] MEDS ORDERED: TPN PER PHARMACY IV NR ×10 (20:00)
[2016-09-11] VITALS (92 sets, daily range): BP systolic 86–207; BP diastolic 46–137
[2016-09-11] MEDS: FREE WATER GT SCH ×5 (00:14→23:45)
[2016-09-11] MEDS: InsuLIN REG 1unit/0.01ml Soln (100units/ml) SC SCH ×5 (00:15→23:44)
[2016-09-11] MEDS: IPRATROPIUM BROM 0.5 MG/2.5ML INH SOL NEB SCH ×6 (02:26→22:07)
[2016-09-11] MEDS: ALBUTEROL SULF 2.5 MG/0.5ML(0.5%) NEB SOLN NEB SCH ×6 (02:26→22:07)
[2016-09-11] MEDS: MORPHINE SULF INJ 2 MG/ML SYRINGE 1ML IV PRN ×2 (03:44→23:10)
[2016-09-11] MEDS: ACCU-CHEK COMFORT CURVE STRIP VI SCH ×4 (06:18→23:43)
[2016-09-11] MEDS: MEROPENEM 1GM IVPB 100 ML IV SCH ×3 (06:18→21:15)
[2016-09-11] MEDS: methylPREDNISolone SOD SUCC 40 MG/ML VL IV SCH ×3 (06:18→21:15)
[2016-09-11 06:48] LABS: Hematocrit 42.9 % (41.0-53.0); Hemoglobin 13.4 g/dL (13.5-17.5); Mean Corpuscular Hgb Conc. 31.2 g/dL (32.0-36.0); Mean Corpuscular Volume 89.9 fL (80.0-100.0); Mean Platelet Volume 9.3 fL (7.4-10.4); Platelet Count (auto) 281 10^3/uL (140-450); Red Cell Distribution Width 16.5 % (11.6-16.0); SUSPECT VIEW TRANSMISSION; White Blood Cell 16.5 10^3/uL (4.4-10.8)
[2016-09-11 06:51] LABS: Metamyelocytes % 0; Myelocytes % 0; Promyelocytes % 0; Reactive Lymphocytes 0
[2016-09-11 07:09] LABS: BUN/Creatinine Ratio 39.6; Bilirubin, Total 0.4 mg/dL (0.2-1.0); Calcium 7.6 mg/dL (8.5-10.1); Magnesium 2.2 mg/dL (1.6-2.6); Phosphorus 3.3 mg/dL (2.6-4.90); Potassium 4.1 mmol/L (3.5-5.1); Total Protein 5.1 g/dL (6.4-8.2)
[2016-09-11 07:47] LABS: B-Type Natriuretic Peptide 82.97 pg/mL (0-100)
[2016-09-11] MEDS: LINEZOLID 600MG/300ML 300 ML IV SCH ×2 (08:23→19:43)
[2016-09-11] MEDS: MIDAZOLAM DRIP 100 mg/100mL NS 100 ML IV SCH (08:25)
[2016-09-11] MEDS: fentaNYL Drip 2500mCg/250mlNS 250 ML IV SCH (08:25)
[2016-09-11 08:36] LABS: Hypersegmented Neutrophils Present; Platelet Clumps FEW; Platelet Estimate Adequate
[2016-09-11] MEDS ORDERED: LACTULOSE 20Gm/30ML SOLN PO PRN (09:30)
[2016-09-11] MEDS: PANTOPRAZOLE SODIUM 40 MG/10 ML VIAL IV SCH (09:52)
[2016-09-11] MEDS: ENOXAPARIN SOD 120 MG/0.8 ML SYRINGE SC SCH ×2 (09:52→21:16)
[2016-09-11] MEDS: BUDESONIDE (INHALATION) 0.5 MG/2 ML NEB NEB SCH ×2 (09:53→18:26)
[2016-09-11] MEDS: ENALAPRIL MALEATE 2.5 MG TAB NG SCH (09:53)
[2016-09-11] MEDS: SODIUM CHLOR 0.9% PF (SALINE LOCK) 10ML VIAL IV SCH ×2 (09:54→21:16)
[2016-09-11] MEDS: LACTULOSE 20Gm/30ML SOLN PO PRN (14:16)
[2016-09-11] MEDS ORDERED: FUROSEMIDE 40 MG/4 ML VIAL IV ONE (16:30)
[2016-09-11] MEDS: [UNRECOGNIZED DRUG - OTHER] IV SCH (17:00)
[2016-09-11] MEDS: TRACE MINERALS IV SCH (17:00)
[2016-09-11] MEDS: INSULIN R IV SCH (17:00)
[2016-09-11] MEDS: MULTIPLE VITAMIN IV SCH (17:00)
[2016-09-11] MEDS: LEVOFLOXACIN 750MG 150 ML IV SCH (17:41)
[2016-09-11] MEDS ORDERED: LABETALOL HCL 5 MG/ML 4ML SYRINGE IV ONE (17:51)
[2016-09-11] MEDS: LABETALOL HCL 5 MG/ML 4ML SYRINGE IV PRN ×2 (18:01→21:12)
[2016-09-11] MEDS: NOREPINEPHRINE BITARTRATE 250 ML IV SCH (19:37)
[2016-09-11] MEDS ORDERED: TPN PER PHARMACY IV NR ×10 (20:00)
[2016-09-11] MEDS ORDERED: hydrALAZINE HCL 20 MG/ML VL IV ONE (22:30)
[2016-09-12] VITALS (90 sets, daily range): BP systolic 111–189; BP diastolic 43–119
[2016-09-12] MEDS: LABETALOL HCL 5 MG/ML 4ML SYRINGE IV PRN ×4 (00:06→18:47)
[2016-09-12] MEDS: ALBUTEROL SULF 2.5 MG/0.5ML(0.5%) NEB SOLN NEB SCH ×4 (02:08→18:59)
[2016-09-12] MEDS: IPRATROPIUM BROM 0.5 MG/2.5ML INH SOL NEB SCH ×4 (02:08→18:59)
[2016-09-12] MEDS: MORPHINE SULF INJ 2 MG/ML SYRINGE 1ML IV PRN ×3 (02:27→09:37)
[2016-09-12] MEDS ORDERED: DILTIAZEM HCL 25 MG/5 ML VIAL IV ONE (02:30)
[2016-09-12 03:42] LABS: Hematocrit 43.1 % (41.0-53.0); Hemoglobin 13.4 g/dL (13.5-17.5); Mean Corpuscular Hemoglobin 27.8 pg (28.0-32.0); Mean Corpuscular Hgb Conc. 31.2 g/dL (32.0-36.0); Mean Corpuscular Volume 89.1 fL (80.0-100.0); Mean Platelet Volume 9.6 fL (7.4-10.4); Platelet Count (auto) 283 10^3/uL (140-450); Red Cell Distribution Width 16.4 % (11.6-16.0); SUSPECT VIEW TRANSMISSION; White Blood Cell 22.1 10^3/uL (4.4-10.8)
[2016-09-12 03:51] LABS: BUN/Creatinine Ratio 38.2; Calcium 7.3 mg/dL (8.5-10.1); Magnesium 2.1 mg/dL (1.6-2.6); Potassium 3.8 mmol/L (3.5-5.1)
[2016-09-12 03:54] LABS: Bilirubin, Total 0.3 mg/dL (0.2-1.0); Metamyelocytes % 0; Myelocytes % 0; Promyelocytes % 0; Reactive Lymphocytes 0; Total Protein 5.3 g/dL (6.4-8.2)
[2016-09-12 03:58] LABS: Phosphorus 2.9 mg/dL (2.6-4.90)
[2016-09-12] MEDS ORDERED: MORPHINE SULFATE 4 MG/ML SYRG ONE (04:22)
[2016-09-12 04:26] LABS: B-Type Natriuretic Peptide 253.21 pg/mL (0-100)
[2016-09-12 04:33] LABS: Hypersegmented Neutrophils Present
[2016-09-12 04:34] LABS: Anisocytosis Slight; Hypochromia Slight; Ovalocytes FEW
[2016-09-12 05:18] LABS: Platelet Estimate Adequate
[2016-09-12] MEDS: MEROPENEM 1GM IVPB 100 ML IV SCH ×3 (05:31→22:14)
[2016-09-12] MEDS: FREE WATER GT SCH (05:32)
[2016-09-12] MEDS: methylPREDNISolone SOD SUCC 40 MG/ML VL IV SCH (05:32)
[2016-09-12] MEDS: ACCU-CHEK COMFORT CURVE STRIP VI SCH ×2 (05:32→12:14)
[2016-09-12] MEDS: InsuLIN REG 1unit/0.01ml Soln (100units/ml) SC SCH ×2 (05:35→12:25)
[2016-09-12] MEDS: LINEZOLID 600MG/300ML 300 ML IV SCH ×2 (08:44→20:05)
[2016-09-12] MEDS: PANTOPRAZOLE SODIUM 40 MG/10 ML VIAL IV SCH (09:37)
[2016-09-12] MEDS: ENOXAPARIN SOD 120 MG/0.8 ML SYRINGE SC SCH (09:37)
[2016-09-12] MEDS: SODIUM CHLOR 0.9% PF (SALINE LOCK) 10ML VIAL IV SCH ×2 (10:00→22:14)
[2016-09-12] MEDS: LISINOPRIL 10 MG TAB PO SCH (10:45)
[2016-09-12] MEDS: predniSONE 5 MG TAB PO SCH (10:45)
[2016-09-12] MEDS: amLODIPine BESYLATE 5 MG TAB PO SCH (10:45)
[2016-09-12] MEDS: BUDESONIDE (INHALATION) 0.5 MG/2 ML NEB NEB SCH ×2 (13:02→19:00)
[2016-09-12] MEDS: LEVOFLOXACIN 750MG 150 ML IV SCH (18:28)
[2016-09-12] MEDS ORDERED: TPN PER PHARMACY IV NR ×10 (20:00)
[2016-09-13] VITALS (52 sets, daily range): BP systolic 91–200; BP diastolic 63–125
[2016-09-13] MEDS: ALBUTEROL SULF 2.5 MG/0.5ML(0.5%) NEB SOLN NEB SCH ×4 (00:34→19:13)
[2016-09-13] MEDS: IPRATROPIUM BROM 0.5 MG/2.5ML INH SOL NEB SCH ×4 (00:34→19:13)
[2016-09-13] MEDS: LABETALOL HCL 5 MG/ML 4ML SYRINGE IV PRN ×3 (01:12→16:30)
[2016-09-13] MEDS: MORPHINE SULF INJ 2 MG/ML SYRINGE 1ML IV PRN ×3 (01:13→19:32)
[2016-09-13] MEDS: BUDESONIDE (INHALATION) 0.5 MG/2 ML NEB NEB SCH (06:12)
[2016-09-13] MEDS: MEROPENEM 1GM IVPB 100 ML IV SCH ×3 (06:20→22:00)
[2016-09-13 07:07] LABS: Albumin 2.3 g/dL (3.4-5.0); BUN/Creatinine Ratio 39.7; Bilirubin, Total 0.7 mg/dL (0.2-1.0); Calcium 7.8 mg/dL (8.5-10.1); Magnesium 2.2 mg/dL (1.6-2.6); Phosphorus 1.9 mg/dL (2.6-4.90); Potassium 4.2 mmol/L (3.5-5.1); Total Protein 5.3 g/dL (6.4-8.2)
[2016-09-13] MEDS: LINEZOLID 600MG/300ML 300 ML IV SCH ×2 (08:00→20:15)
[2016-09-13] MEDS: PANTOPRAZOLE SODIUM 40 MG/10 ML VIAL IV SCH (10:21)
[2016-09-13] MEDS: amLODIPine BESYLATE 5 MG TAB PO SCH (10:22)
[2016-09-13] MEDS: predniSONE 5 MG TAB PO SCH (10:22)
[2016-09-13] MEDS: SODIUM CHLOR 0.9% PF (SALINE LOCK) 10ML VIAL IV SCH ×2 (10:23→23:25)
[2016-09-13] MEDS: LISINOPRIL 10 MG TAB PO SCH (10:23)
[2016-09-13] MEDS ORDERED: FUROSEMIDE 40 MG/4 ML VIAL IV ONE (14:45)
[2016-09-13] MEDS: LEVOFLOXACIN 750MG 150 ML IV SCH (17:54)
[2016-09-14] VITALS: BP 115/71
[2016-09-14] MEDS: IPRATROPIUM BROM 0.5 MG/2.5ML INH SOL NEB SCH ×2 (00:22→06:06)
[2016-09-14] MEDS: BUDESONIDE (INHALATION) 0.5 MG/2 ML NEB NEB SCH ×2 (00:22→06:06)
[2016-09-14] MEDS: ALBUTEROL SULF 2.5 MG/0.5ML(0.5%) NEB SOLN NEB SCH ×2 (00:22→06:06)
[2016-09-14 03:51] VITALS: BP 133/79
[2016-09-14 04:00] VITALS: BP 121/73
[2016-09-14 05:53] LABS: INR 1.1 (0.9-1.15); Partial Thromboplastin Time 28.4 sec (22.64-33.71); Prothrombin Time 11.3 sec (9.37-12.3)
[2016-09-14] MEDS: MEROPENEM 1GM IVPB 100 ML IV SCH (05:54)
[2016-09-14 06:07] VITALS: BP 121/73
[2016-09-14 06:22] LABS: DEFINITIVE VIEW TRANSMISSION; Hematocrit 37.7 % (41.0-53.0); Hemoglobin 12.2 g/dL (13.5-17.5); Mean Corpuscular Hemoglobin 29.2 pg (28.0-32.0); Mean Corpuscular Hgb Conc. 32.4 g/dL (32.0-36.0); Mean Platelet Volume 10.3 fL (7.4-10.4); Platelet Count (auto) 216 10^3/uL (140-450); Red Cell Distribution Width 15.5 % (11.6-16.0); SUSPECT VIEW TRANSMISSION; White Blood Cell 27.4 10^3/uL (4.4-10.8)
[2016-09-14] MEDS: LACTULOSE 20Gm/30ML SOLN PO PRN (06:26)
[2016-09-14 06:33] LABS: Metamyelocytes % 0; Myelocytes % 0; Promyelocytes % 0; Reactive Lymphocytes 0
[2016-09-14 06:38] LABS: Potassium 4.3 mmol/L (3.5-5.1)
[2016-09-14 06:44] LABS: Albumin 2.1 g/dL (3.4-5.0); BUN/Creatinine Ratio 35.4; Calcium 7.5 mg/dL (8.5-10.1)
[2016-09-14 06:46] LABS: Bilirubin, Total 0.8 mg/dL (0.2-1.0); Total Protein 5.2 g/dL (6.4-8.2)
[2016-09-14 07:12] LABS: Platelet Estimate Adequate
[2016-09-14 07:16] LABS: Urine Bilirubin Negative (Negative); Urine Color Yellow (Yellow); Urine Glucose Normal (Normal); Urine Ketone TRACE (Negative); Urine Mucus FEW (None Seen); Urine Nitrite Negative (Negative); Urine RBC 77 /hpf (0 - 3); Urine Squamous Epithelial Cell FEW /hpf (<5); Urine Urobilinogen Normal (Negative); Urine pH 5.5 (5.0-8.0)
[2016-09-14 07:27] LABS: Urine Blood 2+ /uL (Negative)
[2016-09-14 08:00] VITALS: BP 90/25
[2016-09-14] MEDS ORDERED: CALCIUM CHLOR(10%) 100MG/ML 10ML SYRINGE IV ONE (09:10)
[2016-09-14] MEDS ORDERED: ATROPINE SULF 0.5 MG/5ML SYR IV ONE (09:10)
[2016-09-14] MEDS ORDERED: EPINEPHrine HCL 1 MG/10 ML SYRG IV ONE (09:10)
[2016-09-14] MEDS ORDERED: SODIUM BICARBONATE 8.4% INJ 50ML SYRINGE IV ONE (09:10)
[2016-09-14] MEDS ORDERED: amLODIPine BESYLATE 5 MG TAB PO SCH (10:00)
[2016-09-19] MEDS ORDERED: APIXABAN 5 MG TAB PO SCH (22:00)
== END 2016-09-14 12:05 | disposition expired | DRG 130 ==
LOC: ER 21:38 → TELE 21:39 → TELE-WESTW 08-30 05:00 → DOU IN ICU 08-31 13:29 → ICU WEST 08-31 18:20 → DOU IN ICU 09-13 17:32
PROVIDERS: ADMIT Nurse Practitioner; ATTEND Internal Medicine Pulmonary Disease
PROC: 02HV33Z Insertion of Infusion Device into Superior Vena Cava, Percutaneous Approach (ICD-10-PCS; principal; 2016-08-30)
PROC: 5A1955Z Respiratory Ventilation, Greater than 96 Consecutive Hours (ICD-10-PCS; 2016-08-30)
PROC: 0BH17EZ Insertion of Endotracheal Airway into Trachea, Via Natural or Artificial Opening (ICD-10-PCS; 2016-08-30)
PROC: 5A09457 Assistance with Respiratory Ventilation, 24-96 Consecutive Hours, Continuous Positive Airway Pressure (ICD-10-PCS; 2016-08-30)
DX: J96.21 Acute and chronic respiratory failure with hypoxia (principal); N17.0 Acute kidney failure with tubular necrosis; I26.99 Other pulmonary embolism without acute cor pulmonale; I50.43 Acute on chronic combined systolic (congestive) and diastolic (congestive) heart failure; I13.0 Hypertensive heart and chronic kidney disease with heart failure and stage 1 through stage 4 chronic kidney disease, or unspecified chronic kidney disease; E87.0 Hyperosmolality and hypernatremia; J95.851 Ventilator associated pneumonia; J44.1 Chronic obstructive pulmonary disease with (acute) exacerbation; N18.3 Chronic kidney disease, stage 3 (moderate); E66.01 Morbid (severe) obesity due to excess calories; E78.5 Hyperlipidemia, unspecified; K21.9 Gastro-esophageal reflux disease without esophagitis; L03.119 Cellulitis of unspecified part of limb; N28.0 Ischemia and infarction of kidney; I25.10 Atherosclerotic heart disease of native coronary artery without angina pectoris; Z99.81 Dependence on supplemental oxygen; J44.0 Chronic obstructive pulmonary disease with (acute) lower respiratory infection; B95.62 Methicillin resistant Staphylococcus aureus infection as the cause of diseases classified elsewhere; I83.009 Varicose veins of unspecified lower extremity with ulcer of unspecified site; L97.909 Non-pressure chronic ulcer of unspecified part of unspecified lower leg with unspecified severity; J96.22 Acute and chronic respiratory failure with hypercapnia; Z82.49 Family history of ischemic heart disease and other diseases of the circulatory system; Z86.711 Personal history of pulmonary embolism; Z82.5 Family history of asthma and other chronic lower respiratory diseases; Z87.891 Personal history of nicotine dependence; Z68.41 Body mass index [BMI] 40.0-44.9, adult; Z95.0 Presence of cardiac pacemaker; Z80.9 Family history of malignant neoplasm, unspecified; Z83.6 Family history of other diseases of the respiratory system; Z88.1 Allergy status to other antibiotic agents; Z91.048 Other nonmedicinal substance allergy status
CPT/HCPCS: 36415; 36600; 71010; 80048; 80053; 81001; 82040; 82805; 82962; 83735; 83880; 84100; 84478; 84484; 84550; 85007; 85025; 85027; 85379; 85610; 85730; 86803; 87070; 87077; 87081; 87086; 87186; 87205; 87340; 92610; 93005; 94003; 94640; 94644; 94660; 96374; 96375; 99291; C9113; J0330; J0461; J0696; J1815; J1956; J2185; J2405; J2704; J3010; J3490; J7131